=== PATIENT | female | born 1995 | race Caucasian/White ===

== ENCOUNTER 2024-02-14 08:25 | Emergency (ER) | payer OTHER, SELFPAY ==
[2024-02-14 08:41] VITALS: BP 113/70; PULSE 125; RESP 18; TEMP 38.3; O2SAT 99; BMI 25.1
--- NOTE | 2024-02-14 08:53 | XR_ITS ---
The [address] [address] Patient Name: OCHOA WEINBERG MRN: [id number] date: 1995 Sex: F Assigned Patient Location: ER Current Patient Location: ER Accession/Order Number: [id number] Exam Date: 02/14/2024 09:10 Report Date: 02/14/2024 09:56 At the request of: DAVID LANIEZ Procedure: XR chest 1V EXAM: XR chest 1V HISTORY: cough COMPARISON: None. FINDINGS: Frontal view of the chest shows increased density medially in the right base suspicious for pneumonia. The left lung is clear and upper right lung is clear. The heart size is within normal limits. There are no pleural effusions. No acute bony abnormality is identified. XR/XR chest 1V IMPRESSION: Focal increased density medially in the right base is suspicious for pneumonia. Electronically authenticated by: PERRY GALICIA Date: 02/14/2024 09:56
[2024-02-14] MEDS: ACETAMINOPHEN 325 MG TABLET 650 MG PO (09:05)
[2024-02-14] MEDS: 0.9 % SODIUM CHLORIDE 1,000 ML 1000 ML IV ×2 (09:05→10:20)
[2024-02-14 09:10] VITALS: O2SAT 100
--- NOTE | 2024-02-14 09:20 | ED.URI1 ---
HPI - URI/Sore Throat General Chief Complaint: Upper Respiratory Infection Stated Complaint: Upper Respiratory Infection Time Seen by Provider: 02/14/24 08:52 Source: patient Limitations: no limitations History of Present Illness HPI Narrative: The patient presented to us with 2 days history of a nasal congestion body ache as well as sore throat and cough. The cough productive of whitish sputum the patient have no shortness of breath and no exposure to anybody with similar symptoms. No other complaints of nausea or diarrhea Related Data Previous Rx's ?Medication ?Instructions ?Recorded azithromycin 250 mg tablet See Rx Instructions PO .COMPLEX #6 02/14/24 (Zithromax Z-Helio) tabs Allergies Allergy/AdvReac Type Severity Reaction Status Date / Time No Known Drug Allergies Allergy Verified 02/14/24 09:06 Review of Systems ROS Status of ROS 10 or more systems reviewed and unremarkable except as noted in history and below Exam Narrative Exam Narrative: Nurses notes and vital signs reviewed and patient is not hypoxic. General: Well-appearing and in no apparent distress. Skin: Warm, dry, no pallor noted. No rash. Head: Normocephalic, atraumatic. Neck: Supple, non-tender. Eye: Pupils are equal, round and EOMI. No scleral icterus. Ears, Nose, Mouth, and Throat: TM are clear, no nasal mucosal hypertrophy. Oral mucosa is moist, no posterior oropharynx erythema, uvula is mid-line Cardiovascular: Regular Rate and Rhythm without murmur, gallop or rub. Respiratory: No accessory muscle use or respiratory distress. Lungs are clear to auscultation, no wheezing, rales or rhonchi Chest Wall: no tenderness Back: No midline thoracic or lumbar vertebral tenderness. No CVA tenderness Musculoskeletal: normal ROM, no calf or popliteal tenderness, no lower extremity edema/swelling GI: Abdomen is soft, non-distended. Normal bowel sounds. No masses appreciated. No tenderness to palpation. No rebound, guarding, or rigidity noted. Neurological: A&O x4. No cranial nerve dysfunction observed. No truncal ataxia. Moves all extremities. Sensation intact. Psychiatric: Cooperative and interactive. Normal mood and affect. Constitutional Vital Signs, click to edit/add: Last Vital Signs Temp 101.2 F H 02/14/24 09:55 Pulse 106 H 02/14/24 09:55 Resp 16 02/14/24 09:55 BP 100/66 02/14/24 09:55 Pulse Ox 98 02/14/24 09:55 O2 Del Method Room Air 02/14/24 09:55 Course Vital Signs Vital signs: Vital Signs Temperature 100.9 F H 02/14/24 08:41 Pulse Rate 125 H 02/14/24 08:41 Respiratory Rate 18 02/14/24 08:41 Blood Pressure 113/70 02/14/24 08:41 Pulse Oximetry 99 02/14/24 08:41 Oxygen Delivery Method Room Air 02/14/24 08:41 Temperature 101.2 F H 02/14/24 09:55 Pulse Rate 106 H 02/14/24 09:55 Respiratory Rate 16 02/14/24 09:55 Blood Pressure 100/66 02/14/24 09:55 Pulse Oximetry 98 02/14/24 09:55 Oxygen Delivery Method Room Air 02/14/24 09:55 MDM - URI/Sore Throat MDM Narrative Medical decision making narrative: The patient CBC and chemistry showed no acute pathology except for some increase in the lymphocytes which could be secondary to viral infection Lactic acid was not elevated The patient was feeling much better after Tylenol and IV fluid Chest x-ray showed possible infiltrate and possible pneumonia the patient will be covered with azithromycin She was instructed about hydration and resting at home for the next few days Flu as well as COVID test are negative The patient is to follow up with primary care physician in next 2-3 days or to return to the emergency department should any of the signs or symptoms worsen or new symptoms develop. The patient agrees with the following Diagnosis and Treatment plan and the patient will be discharged home. Lab Data Labs: Lab Results 02/14/24 02/14/24 Range/Units 08:45 10:11 WBC 8.2 (4.0-11.0) 10^3/uL RBC 4.39 (4.20-5.40) 10^6/uL Hgb 13.1 (12.0-16.0) g/dL Hct 40.6 (36.0-48.0) % MCV 92.5 (81.0-99.0) fL MCH 29.8 (26.7-34.0) pg MCHC 32.3 (29.9-35.2) g/dL RDW 12.2 (11.0-15.0) % Plt Count 191 (150-450) 10^3/uL MPV 10.2 (9.5-13.5) fL Neut % (Auto) 71.0 (43.0-75.0) % Lymph % (Auto) 17.5 L (20.5-60.0) % [place] % (Auto) 10.7 (1.7-12.0) % Eos % (Auto) 0.2 L (0.9-7.0) % Baso % (Auto) 0.4 (0.2-2.0) % Neut # (Auto) 5.8 (1.4-6.5) 10^3/uL Lymph # (Auto) 1.4 (1.2-3.8) 10^3/uL [place] # (Auto) 0.9 H (0.3-0.8) 10^3/uL Eos # (Auto) 0.0 (0.0-0.7) 10^3/uL Baso # (Auto) 0.0 (0.0-0.1) 10^3/uL Abs Immat Gran (auto) 0.02 (0.00-0.03) 10^3/uL Imm/Tot Granulo (auto) 0.2 (0.0-0.5) % Sodium 136 (136-145) mmol/L Potassium 3.5 (3.5-5.1) mmol/L Chloride 97 L (98-107) mmol/L Carbon Dioxide 26.6 (21.0-32.0) mmol/L Anion Gap 15.9 BUN 10.0 (7.0-18.0) mg/dL Creatinine 0.93 (0.55-1.02) mg/dL Est GFR ( Amer) >60 (>=60) Est GFR (Non-Af Amer) >60 (>=60) BUN/Creatinine Ratio 10.8 Glucose 102 (74-106) mg/dL Lactate 0.9 (0.4-2.0) mmol/L Calcium 8.5 (8.5-10.1) mg/dL Total Bilirubin 0.4 (0.2-1.0) mg/dL AST 12 L (15-37) U/L ALT 16 (14-59) U/L Alkaline Phosphatase 72 (46-116) U/L Total Protein 7.7 (6.4-8.2) g/dL Albumin 3.5 (3.4-5.0) g/dL Globulin 4.2 g/dL Albumin/Globulin Ratio 0.8 Influenza Type A Ag Negative Influenza Type B Ag Negative SARS-CoV-2 Ag (CV2AG) Negative (NEGATIVE) Discharge Plan Discharge Stand Alone Forms: Portal Instructions Chief Complaint: Upper Respiratory Infection Clinical Impression: Acute viral syndrome Pneumonia Qualifiers: Pneumonia type: due to unspecified organism Laterality: unspecified laterality Lung location: unspecified part of lung Qualified Code(s): J18.9 - Pneumonia, unspecified organism Patient Disposition: Home, Self-Care Time of Disposition Decision: 10:47 Condition: Good Prescriptions / Home Meds: New azithromycin [Zithromax Z-Helio] 250 mg tablet See Rx Instructions .ROUTE .COMPLEX Qty: 6 0RF Rx Instructions: For 250 mg dose pack: take 500 mg today (day 1), then 250 mg for 4 days (days 2-5) Print Language: [place]ic Instructions: Community Acquired Pneumonia (DC), Viral Syndrome (ED) Referrals: Physician,Non-Staff, MD [Primary Care Provider] - 1 week
[2024-02-14 09:27] LABS: Influenza Virus A Antigen Negative; Influenza Virus B Antigen Negative; Internal Control Within Normal Limits; SARS-CoV-2 Ag NEGATIVE (NEGATIVE)
[2024-02-14 09:55] VITALS: BP 100/66; PULSE 106; RESP 16; TEMP 38.4; O2SAT 98
[2024-02-14 10:27] LABS: Basophils Percent Auto 0.4 % (0.2-2.0); Eosinophils Percent Auto 0.2 % (0.9-7.0); Hematocrit 40.6 % (36.0-48.0); Hemoglobin 13.1 g/dL (12.0-16.0); Immature Granulocytes Abs Auto 0.02 10^3/uL (0.00-0.03); Immature Granulocytes Pct Auto 0.2 % (0.0-0.5); Lymphocytes Absolute Auto 1.4 10^3/uL (1.2-3.8); Lymphocytes Percent Auto 17.5 % (20.5-60.0); Mean Corpuscular HGB Conc 32.3 g/dL (29.9-35.2); Mean Corpuscular Hemoglobin 29.8 pg (26.7-34.0); Mean Corpuscular Volume 92.5 fL (81.0-99.0); Mean Platelet Volume 10.2 fL (9.5-13.5); Monocytes Absolute Auto 0.9 10^3/uL (0.3-0.8); Monocytes Percent Auto 10.7 % (1.7-12.0); Neutrophils Absolute Auto 5.8 10^3/uL (1.4-6.5); Platelet Count 191 10^3/uL (150-450); Red Blood Count 4.39 10^6/uL (4.20-5.40); Red Cell Distribution Width 12.2 % (11.0-15.0); White Blood Count 8.2 10^3/uL (4.0-11.0)
[2024-02-14 10:38] LABS: Alanine Aminotransferase 16 U/L (14-59); Albumin Globulin Ratio 0.8; Albumin Level 3.5 g/dL (3.4-5.0); Alkaline Phosphatase 72 U/L (46-116); Anion Gap 15.9; Aspartate Amino Transferase 12 U/L (15-37); BUN Creatinine Ratio 10.8; Bilirubin Total 0.4 mg/dL (0.2-1.0); Calcium 8.5 mg/dL (8.5-10.1); Carbon Dioxide 26.6 mmol/L (21.0-32.0); Chloride 97 mmol/L (98-107); Estimated GFR (African America >60 (>=60); Estimated GFR (Non-African Ame >60 (>=60); Globulin 4.2 g/dL; Glucose 102 mg/dL (74-106); Potassium 3.5 mmol/L (3.5-5.1); Sodium 136 mmol/L (136-145); Total Protein 7.7 g/dL (6.4-8.2)
[2024-02-14 10:40] LABS: Lactate/Lactic Acid 0.9 mmol/L (0.4-2.0)
== END 2024-02-14 10:58 | disposition home or self-care (01) ==
PROVIDERS: Emergency Provider Emergency Medicine
DX: J18.9 Pneumonia, unspecified organism (principal); B34.9 Viral infection, unspecified; Z20.822 Contact with and (suspected) exposure to COVID-19
CPT/HCPCS: 36415; 71045; 80053; 83605; 85025; 87804; 87811; 99284